=== PATIENT | male | born 1950 | race Caucasian/White ===

== ENCOUNTER 2023-06-21 12:31 | Outpatient (CLI) | payer MEDICARE, SELFPAY | END 2023-06-21 12:32 | disposition home or self-care (01) | LOC: AMB 07-18 16:06 | PROVIDERS: Visit Provider Family Medicine | DX: R06.09 Other forms of dyspnea (principal) | CPT/HCPCS: A0425; A0427 ==

== ENCOUNTER 2023-06-21 12:54 | Emergency (ER) | payer MEDICAID, MEDICARE, SELFPAY ==
[2023-06-21] VITALS (38 sets, daily range): BP systolic 68–203; BP diastolic 46–121; PULSE 94–145; RESP 10–30; TEMP 36.4; O2SAT 89–98
--- NOTE | 2023-06-21 | CRLHL7_ITS ---
For Patients: As a result of the Century Cures Act, medical imaging exams and procedure reports are released immediately into your electronic medical record. You may view this report before your referring provider. If you have questions, please contact your health care provider. Indication: Trauma Technique: Chest 1 view Comparison: None Findings/Impression: Cardiovascular and mediastinum: Upper normal heart size with atherosclerotic calcification. Lungs and pleural space: Mild hyperinflation without evidence of pneumothorax. Pulmonary cephalization with bilateral diffuse interstitial opacities suggesting pulmonary edema. Bones and soft tissues: Old right 3rd rib fracture posteriorly. Dictated by Lenin Berger MD @ 06/21/2023 2:12:41 PM (Electronically Signed)
[2023-06-21] MEDS: 0.9 % SODIUM CHLORIDE 1000 ml 1,000 ML 125 ML IV (13:00)
[2023-06-21] MEDS: NITROGLYCERIN/DEXTROSE 25,000 MCG/250 ML BOTTLE 3 MCG IVPB (13:06)
[2023-06-21] MEDS: MORPHINE 2 MG/ML inj IVP (13:08)
[2023-06-21] MEDS: FUROSEMIDE 10 MG/ML inj 80 MG IV (13:09)
--- NOTE | 2023-06-21 13:13 | ED.NURSE ---
POC trop 0.13
[2023-06-21] MEDS: SUCCINYLCHOLINE 20 MG/ML INJ 120 MG IVP (13:15)
[2023-06-21] MEDS: PROPOFOL 10 MG/ML INJ 80 MG IVP (13:15)
--- NOTE | 2023-06-21 13:16 | CRLHL7_ITS ---
For Patients: As a result of the Century Cures Act, medical imaging exams and procedure reports are released immediately into your electronic medical record. You may view this report before your referring provider. If you have questions, please contact your health care provider. INDICATION: CHEST TUBE PLACEMENT; PAIN TECHNIQUE: Chest one view, 3 images were obtained during chest tube attempt COMPARISON: June 21, 2023. FINDINGS: Cardiovascular and mediastinum: Unchanged prominence of the cardiomediastinal silhouette. Lungs and pleural spaces: Mild hyperinflation. Some appearance of pulmonary cephalization with bilateral diffuse interstitial opacities suggesting pulmonary edema. No evidence of effusion. No visualized pneumothorax. Findings of pulmonary edema again suspected. Worsening bibasilar atelectasis/consolidation. On the final image the endotracheal tube tip projects approximately 4.5 cm above the level the tam[place]. Enteric tube tip projects off the left lower aspect of the image. No chest tube is visualized. Bones and soft tissues: No significant findings. IMPRESSION: On the final image the endotracheal tube tip projects approximately 4.5 cm above the level the tamica. No chest tube is visualized. Findings of pulmonary edema again suspected. Worsening bibasilar atelectasis/consolidation. Dictated by Ludwig Alberto MD @ 06/21/2023 2:41:46 PM (Electronically Signed)
[2023-06-21] MEDS: propofoL 1,000 MG/100 ML ML 30 MG IVPB ×2 (13:17→14:30)
[2023-06-21] MEDS: fentaNYL 100 MCG/2 ML inj IVP ×2 (13:26→13:36)
[2023-06-21] MEDS: HEPARIN 5,000 UNIT/0.5 ML INJ 4000 UNIT IVP (13:26)
[2023-06-21] MEDS: MIDAZOLAM HCL 1 MG/ML inj 2 MG IVP ×4 (13:32→14:30)
--- NOTE | 2023-06-21 13:35 | P.ANES_ITS ---
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
--- NOTE | 2023-06-21 13:35 | ED.GENADULT ---
HPI - General Adult General Chief complaint: Shortness of Breath/Dyspnea Stated complaint: Shortness of breath Time Seen by Provider: 06/21/23 13:29 History of Present Illness HPI narrative: Patient is a 73 white male apparently went to the [facility] today and subsequent got really short of breath. He states he had a similar episode about a week ago to the ambulance crew and the simply ?walked it off?. The patient has no medical history by his report he does not take any medications has not had any heart history or lung history by his report. On arrival to ER his breathing has gotten worse and he is laboring to breathe. He denies any chest pain on presentation. He is very diaphoretic on presentation as well as a short of breath. He is mottled over his upper chest. He has no marked lower extremity swelling, he has not had no history of cardiac issues as mention. On presentation RT was here in started BiPAP on the patient, he did get aspirin in the ambulance, on presentation ELOY was taken to the cardiac room. Review of Systems Status of ROS: Reports: unobtainable due to medical condition Exam Narrative: Exam Narrative: Objective: The patient's vital signs show him to be hypertensive in the 200 range systolic, he was O2 sat 77% on presentation to the ambulance, he is 90% with BiPAP and we started IVs promptly on the patient as well. The patient is mottled over his upper chest, he has diaphoresis, he responsive shaking his head but he does not really talk. HEENT shows no facial asymmetry, mouth is clear, neck supple, chest diminished air exchange bilaterally and rales 3/[address] bilaterally Heart rhythm regular 2/6 systolic murmur Abdomen obese benign, patient is using accessory muscles respiration for breathing Extremities is trace edema Neurologic is grossly nonfocal, he is slightly cool in the extremities Medical Decision Making MDM Narrative Medical decision making narrative: [age] year white male with sudden onset of shortness of breath, rule out acute coronary syndrome rule out flash pulmonary edema. The patient had BiPAP started by RT, he was tolerating that but continued to be with heavy work of breathing. At that time anesthesia was called and they intubated the patient successfully. The ET tube was confirmed with a chest x-ray and auscultation. His O2 sats remained excellent. His blood pressure came down to about 130 systolic. He was put on a propofol drip, as well he was given 80 mg IV Lasix 2 mg IV morphine, fentanyl after he was intubated for pain control. He was also started on preload reduction with nitroglycerin IV. Ashley catheter was placed, 2nd IV started. Patient was given IV Zosyn as well. Discussed the case with Dr. Roblero at [facility] [place], we fax in the EKG, and make transfer arrangements. The patient at this point does not has does not have ST elevation so does not qualify as a level 1 cardiac case, but he does have CCU criteria and will be admitted to the CCU at [facility]. At this time there is a delay in transfer as they have limited bed availability and they will let us know when they have bed availability, and it does sound like it will be relatively soon. Decision to transfer was made at the time of intubation. Of course the leg given the lack of available bed. [facility] is not flying at this time so patient will be transferred via ground ambulance. It appears the patient has flash pulmonary edema, likely from a cardiac standpoint, probable acute [place] non ST elevation. Discussed with Cardiology they agree with the treatment plan as well as the light bulb tester was notified of the plan. Transfer to [facility] by ground ambulance given the weather and no air care when they are available. Transfer sheets completed. Patient is stable and has secure airway and IV access prior to transfer. Chest x-ray shows significant pulmonary edema bilaterally and his EKG by my read shows limited R-wave progression anteriorly ST segment depression inferolaterally no obvious ST elevation. His initial troponin point of care was elevated at 0.12. Addendum 1:49 p.m. patient had a sudden drop in blood pressure down to the 75 range systolic, Levophed was started and will be titrated as needed, patient all got also got IV Zosyn, is on heparin and nitroglycerin, the nitroglycerin was turned down slightly. Was also placed in Trendelenburg. At this point we are still waiting acceptance for transfer to [facility] ICU. Patient's critical. Pharmacy has been helping throughout the case and have suggested Versed which is excellent idea, he is also on a propofol drip as mention. For sedation. Critical Care Time Critical Care Time Critical Care Time: Yes Attestation: The patient required my highest level preparedness to intervene emergently and I personally spent this critical care time directly and personally managing the patient. This critical care time included: Obtaining a history; Examining the patient; Pulse oximetry; Ordering and reviewing of studies; Arranging urgent treatment with development of a management plan; Evaluation of patients response to treatment; Frequent reassessment discussions with other providers. This critical care time was performed to assess and manage the high probability of imminent life-threatening deterioration that could result in multiorgan failure. It was exclusive of separate billable procedures and treating other patients and teaching time. Total Critical Care Time in Minutes: 95 Discharge Plan Discharge Clinical Impression: Acute cardiac pulmonary edema Patient Disposition: Xfer [facility] Discharge Location: [facility] Condition: Critical Additional Instructions: Patient has been accepted by Dr. Roblero at [facility] [place] [facility] for the light bulb tester in the cardiac care unit. Transfer sheets completed. Stand Alone Forms: [employer] Info Instructions
--- NOTE | 2023-06-21 13:35 | W.ANESCHARGE ---
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
[2023-06-21] MEDS: fentaNYL 100 MCG/2 ML inj IV (13:55)
[2023-06-21 13:58] LABS: Troponin, Point-of-Care* 0.13 ng/ml (0.01-0.04)
[2023-06-21] MEDS: FUROSEMIDE 10 MG/ML inj 40 MG IVP (14:02)
[2023-06-21] MEDS: PIPERACILLIN/TAZOBACTAM 4.5 GM in 0.9 % SODIUM CHLORIDE Mini-bag 100 ML IVPB (14:07)
[2023-06-21 14:09] LABS: Basophils Percent Auto 0.5 % (0.0-3.0); Eosinophils Percent Auto 1.5 % (0.0-7.0); Hematocrit 51.6 % (37.0-53.0); Hemoglobin* 16.9 gm/dL (13.5-17.5); Immature Granulocytes Pct Auto 0.4 %; Lymphocytes Percent Auto 25.1 % (20-44); Mean Corpuscular HGB Conc 33 gm/dL (32-36); Mean Corpuscular Hemoglobin 30 pg (26-34); Mean Corpuscular Volume 92 fL (80-100); Monocytes Percent Auto 5.9 % (0.0-11.0); Neutrophils Percent Auto 66.6 % (42.0-72.0); Platelet Count* 306 K/uL (140-440); RDW Coefficient of Variation % 14.3 % (11.5-15.5); Red Blood Count 5.61 m/uL (4.30-5.90); White Blood Count* 19.12 K/uL (4.50-11.00)
[2023-06-21 14:10] LABS: Albumin* 4.7 g/dL (3.3-5.0); Chloride* 103 mmol/L (96-114); Slide Review Reflex No
[2023-06-21 14:11] LABS: Potassium* 3.6 mmol/L (3.6-5.1); Sodium* 139 mmol/L (135-149)
[2023-06-21 14:12] LABS: Amylase* 50 U/L (18-89)
[2023-06-21 14:13] LABS: Alkaline Phosphatase* 106 U/L (40-150); Anion Gap 13 mEq/L (7-15); Aspartate Amino Transferase* 54 U/L (12-35); Bilirubin Direct* 0.2 mg/dL (0.0-0.5); Bilirubin Total* 1.8 mg/dL (0.1-1.5); Blood Urea Nitrogen* 11 mg/dL (7-30); Carbon Dioxide* 23 mmol/L (20-32); Estimated Glomerular Filt Rate 80 ml/min; Total Protein* 7.9 g/dL (6.0-8.3)
[2023-06-21 14:14] LABS: Alanine Aminotransferase* 70 U/L (4-50); Calcium* 8.6 mg/dL (8.4-10.6); Glucose* 251 mg/dL (60-115)
[2023-06-21 14:15] LABS: Partial Thromboplastin Time* 26 Seconds (23-33); Prothrombin Time 13.8 Seconds
[2023-06-21 14:16] LABS: C Reactive Protein* 1.9 mg/dL (0.5-1.0)
[2023-06-21 14:25] LABS: NT Pro B Type NatriureticPept* 4400 pg/mL
[2023-06-21 14:26] LABS: Troponin I* 0.15 ng/mL (0.01-0.04)
[2023-06-21] MEDS: HEPARIN 25,000 UNIT/500 ML BAG 20 UNIT IV (16:20)
--- NOTE | 2023-06-21 16:30 | ED.NURSE ---
1259 - 18G IV placed in R AC, first EKG done 1301 - BiPap applied 1303 - Chest Xray done in room 1305 - 98%, 10 PEEP on BiPap 1306 - Nitroglycerin drip started @ 10 mcg/min 1308 - 2mg IV morphine given 1309 - 16 Fr Ashley placed, 80 mg IV Lasix given 1311 - ED POC Trop 0.13, Meland informed 1313 - Attempted PO Brilinta, pt not responding to directions 1315 - Pt intubated with 8.0 ET tube, 23 @ gum line, took 80mg IV propofol and 120mg IV succinylcholine 1317 - Meland on phone with [employer]. Propofol drip started @ 50mcg/kg/min. OG inserted, 63 @ gum line 1324 - Repeat EKG done, associate publisher texted EKG per associate publisher request 1326 - Heparin bolus of 4000u IV given, Heparin drip started @ 1000u/hour, Fentanyl 100 mcg IV given 1332 - Versed 2 mg IV given 1336 - Propofol drip increased to 90 mcg/kg/min, Fentanyl 100 mcg IV given 1344 - Propofol drip increased to 100 mcg/kg/min; Norepi started @ 0.05 mcg/kg/min, Nitro drip decreased to 5 mcg/min 1348 - 20G IV placed in L Hand, Norepi increased to 0.1 mcg/kg/min, 2mg IV versed given 1355 - Fentanyl 100 mcg IV given 1359 - Nitro drip increased to 10 mcg/min 1402 - Lasix 40 mg IV given, 20G IV placed in R Hand 1407 - Zosyn IV started 1420 - Transferred to EMS cot 1430 - Versed 2mg IV given 1437 - IV Zosyn stopped 1438 - EMS departs room with pt to ambulance
== END 2023-06-21 14:38 | disposition short-term general hospital (02) ==
PROVIDERS: Emergency Provider Family Medicine
DX: J81.0 Acute pulmonary edema (principal)
CPT/HCPCS: 31500; 36415; 51702; 71045; 80048; 80076; 82150; 83880; 84484; 85025; 85610; 85730; 86140; 93005; 94660; 96365; 96366; 96375; 99100; 99140; 99285; 99291; 99292; J0330; J1644; J1940; J2250; J2270; J2543; J2704; J3010; J7030

== ENCOUNTER 2023-06-21 14:18 | Outpatient (CLI) | payer MEDICAID, SELFPAY | END 2023-06-21 14:19 | disposition home or self-care (01) | LOC: AMB 07-18 16:17 | PROVIDERS: Visit Provider Family Medicine | DX: I21.4 Non-ST elevation (NSTEMI) myocardial infarction (principal) | CPT/HCPCS: A0425; A0427; A0434 ==